=== PATIENT | male | born 1965 | race American Indian/Alaskan Native ===

== ENCOUNTER 2020-07-15 20:16 | Emergency (ER) | payer SELFPAY ==
[2020-07-15 20:44] VITALS: BP 199/100
--- NOTE | 2020-07-15 21:10 | Emergency Department Report ---
ED Male HPI - General Chief complaint: Abdominal Pain Stated complaint: UNABLE TO URINATE Time Seen by Provider: 07/15/20 20:55 Source: patient Mode of arrival: Ambulatory Limitations: No Limitations - History of Present Illness Initial comments: Patient is a 55-year-old male that presents emergency room with complaints of unable to urinate. Patient states that his last time he urinated was 8-1/2 hours ago. Patient states this morning at 1030 his urologist removed his Vega and the patient was able to urinate for approximately 2 more hours and then he states everything just stopped. Patient denies fever and chills. Patient states the abdominal pain is a fullness in his lower abdomen. Patient states he had this before and as soon as they put a Vega in his pain goes away. Patient states that at times he will urinate a small amount. Patient states there is no blood in his urine. Patient denies recent travel. Patient denies recent international travel. Patient denies exposure to the novel coronavirus. Patient denies sick contacts. Patient denies fever and chills. Patient denies cough. Patient denies diarrhea. Patient denies coming in contact with anybody with symptoms of the novel coronavirus. Complaint: other -: Sudden Severity: severe Severity scale (0 -10): 10 Quality: stabbing Consistency: constant Improves with: urination, rest Worsens with: movement indwelling catheter urinary retention - Related Data Allergies Allergy/AdvReac Type Severity Reaction Status Date / Time No Known Allergies Allergy Unverified 07/15/20 20:49 ED Review of Systems ROS: Stated complaint: UNABLE TO URINATE Other details as noted in HPI Constitutional: denies: chills, fever Eyes: denies: eye pain, eye discharge, vision change ENT: denies: ear pain, throat pain Respiratory: denies: cough, shortness of breath, wheezing Cardiovascular: denies: chest pain, palpitations Endocrine: no symptoms reported Gastrointestinal: abdominal pain. denies: nausea, vomiting, diarrhea Genitourinary: as per HPI. denies: urgency, dysuria Musculoskeletal: denies: back pain, joint swelling, arthralgia Skin: denies: rash, lesions Neurological: denies: headache, weakness, paresthesias Psychiatric: denies: anxiety, depression Hematological/Lymphatic: denies: easy bleeding, easy bruising ED Past Medical Hx - Past Medical History Previous Medical History?: Yes Additional medical history: BPH - Surgical History Past Surgical History?: Yes Additional Surgical History: Prostate surgery - Family History Family history: no significant - Social History Smoking Status: Never Smoker Substance Use Type: None ED Physical Exam - General Limitations: No Limitations General appearance: alert, in no apparent distress - Head Head exam: Present: atraumatic, normocephalic - Eye Eye exam: Present: normal appearance - ENT ENT exam: Present: mucous membranes moist - Neck Neck exam: Present: normal inspection - Respiratory Respiratory exam: Present: normal lung sounds bilaterally. Absent: respiratory distress - Cardiovascular Cardiovascular Exam: Present: regular rate, normal rhythm. Absent: systolic murmur, diastolic murmur, rubs, gallop - GI/Abdominal GI/Abdominal exam: Present: soft, distended, tenderness (Lower abdominal tenderness), normal bowel sounds - Rectal Rectal exam: Present: deferred - Extremities Exam Extremities exam: Present: normal inspection - Back Exam Back exam: Present: normal inspection - Neurological Exam Neurological exam: Present: alert, oriented X3 - Psychiatric Psychiatric exam: Present: normal affect, normal mood - Skin Skin exam: Present: warm, dry, intact, normal color. Absent: rash ED Course Vital Signs 07/15/20 20:41 Temperature 98.9 F Pulse Rate 103 H Respiratory 18 Rate Blood Pressure 199/100 O2 Sat by Pulse 99 Oximetry - Reevaluation(s) Reevaluation #1: Initial evaluation done. Patient will have a Vega placed. 07/15/20 20:55 Reevaluation #2: Patient states is feeling much better. Vega is in place. Patient has about 500 mils of fluid. Patient denies pain. Patient states his abdominal pain has resolved. Patient states he is feeling much better. Patient states that he is already on antibiotics and Flomax from his urologist. I discussed all clinical findings with patient. I discussed plan of care with patient. Patient agrees with plan of care. Patient is stable for discharge. Patient will be discharged home. Patient given discharge instructions. Patient voiced understanding of discharge instructions. 07/15/20 21:25 ED Medical Decision Making - Medical Decision Making Patient is a 55-year-old male that presents emergency room with complaints of urinary retention. Patient had his Vega catheter taken out earlier today. Patient had an urinated except for very small amounts for approximately 8-1/2 hours. Patient is currently taking Flomax and antibiotics. Patient has history of BPH. Patient had a Veag placed in the ER. Patient symptoms resolved once the Vega was placed. Patient will be discharged home with the Vega catheter. Patient instructed to follow-up with his urologist. Patient stable for discharge. Patient discharged home. - Differential Diagnosis Urinary retention, BPH, prostatitis, UTI Critical care attestation.: If time is entered above; I have spent that time in minutes in the direct care of this critically ill patient, excluding procedure time. ED Disposition Clinical Impression: Urinary retention Disposition: DC-01 TO HOME OR SELFCARE Is pt being admited?: No Does the pt Need Aspirin: No Condition: Stable Instructions: Acute Urinary Retention, Male, Indwelling Urinary Catheter Care, Adult, [id number] Additional Instructions: Patient to follow-up with primary care in 2 to 3 days. Patient to follow-up with urologist within 24 hours.. Patient to continue antibiotics and Flomax patient to rest. Patient to increase water. Patient to avoid strenuous exercise or heavy lifting until cleared by urologist. Patient to take Tylenol or ibuprofen as needed for pain. Patient to continue all medications. Patient to leave Vega catheter in until cleared by urologist. Patient to return to the ER if condition worsens, changes or new symptoms arise. Time of Disposition: 21:29
== END 2020-07-15 21:38 | disposition home or self-care (01) ==
LOC: ED 20:16
DX: R33.9 Retention of urine, unspecified (principal)
CPT/HCPCS: 51702; 99282